=== PATIENT | female | born 1955 | race Caucasian/White ===

== ENCOUNTER → 2020-02-21 | Outpatient (CLI) | payer OTHER ==
--- NOTE | 2020-02-21 13:19 | RAD ---
ABDOMEN COMPLETE History: Abdominal bloating Comparison: None. Findings: Multiple sonographic images of the abdomen are submitted. There is a large septated cystic mass in the abdomen and pelvis estimated about 27 x 22 x 14 cm in size, associated focus of more solid-appearing echogenicity of the right on the order of 3 cm in size. There is trace free fluid in the left upper quadrant. Common bile duct could not be visualized due to the mass. There is moderate right hydronephrosis. Right kidney measured 9.2 x 6.3 x 5.1 cm. Left kidney measured 9.3 x 4.9 x 4.6 cm, no hydronephrosis. Gallbladder is present without demonstrable intraluminal abnormality or wall thickening. Hepatic echogenicity is within normal limits. Pancreas is poorly seen due to the mass and bowel gas. There is segmental visualization of the inferior vena cava. Abdominal aortic caliber is within normal limits. Impression: 1. There is large septated cystic mass in the abdomen and pelvis, consideration of a large ovarian mass such as cystadenoma or cystadenocarcinoma. There is associated focus of likely solid-appearing nodularity on the right about 3 cm. Findings were discussed with nurse Jordan in the office of Dr. Gates on February 21, 2020 at 1315. 2. There is moderate right hydronephrosis, probably related to the mass. 3. There is trace free fluid in the left upper quadrant of the abdomen. Electronically signed by: Orlando Centeno MD (02/21/2020 1:16 PM) [id number]
== END | disposition home or self-care (01) ==
LOC: US 08:30
PROVIDERS: ATTEND Family Medicine
DX: N13.30 Unspecified hydronephrosis (principal); N94.89 Other specified conditions associated with female genital organs and menstrual cycle; N83.9 Noninflammatory disorder of ovary, fallopian tube and broad ligament, unspecified; R18.8 Other ascites
CPT/HCPCS: 76700